=== PATIENT | male | born 1950 | race Caucasian/White ===

== ENCOUNTER 2023-02-09 12:59 | Outpatient (OUT) | payer MEDICARE, OTHER, SELFPAY ==
--- NOTE | 2023-02-09 13:42 | CA_ITS ---
Patient: BRUNO HUYNH Exam Date: 02/09/2023 : 1950 Gender:M Ordering : MRS. PALMER ALEXANDER NP Admission #: [id number] Family : Order #: [id number] CLICK HERE TO VIEW EXAM ECHOCARDIOGRAM REPORT PROCEDURE: CA ECHO DOPPLER COMPLETE INDICATIONS: Dyspnea on exertion, hypertension, diabetes, COPD, smoker COMPARISON: None. DESCRIPTION: COMPLETE ECHOCARDIOGRAM Real-time transthoracic echocardiography with 2D, M-mode, spectral and color flow Doppler performed. QUALITY: Technical quality was good. LEFT VENTRICLE: Normal chamber size. Normal left ventricular wall thickness. Normal systolic function. LV EF: Normal left ventricular ejection fraction, (55%). DIASTOLIC: Diastolic function is indeterminate. ATRIAL SEPTUM: LEFT ATRIUM: Normal chamber size. RIGHT ATRIUM: Normal chamber size. RIGHT VENTRICLE: Normal chamber size. Normal right ventricular systolic function. TRICUSPID VALVE: Normal mobility and thickness. No stenosis with no regurgitation. Unable to assess right-sided pressures due to lack of measurable tricuspid regurgitation. MITRAL VALVE: Normal mobility and thickness. No evidence of mitral valve stenosis. There is no mitral annular calcification. Trivial mitral regurgitation. AORTIC VALVE: Normal trileaflet appearance. Mildly calcified leaflets. Normal leaflet mobility. No evidence of aortic valve stenosis. No aortic regurgitation. AORTIC ROOT: Normal diameter and appearance. PULMONIC VALVE: Normal thickness and mobility. No stenosis. Trivial regurgitation. PERICARDIUM: No evidence of pericardial effusion. IVC: Collapses with inspirations. PLEURA: CONCLUSION: 1. Normal ventricular systolic function. LVEF is 55%. 2. No significant valvular dysfunction. 3. Unable to assess right-sided pressures due to lack of measurable tricuspid regurgitation. Adult Echocardiography Procedure Report Left Ventricle LVEDD (3.7 - 5.6 cm): 5.39 cm LVESD (2.2 - 4.0 cm): 3.57 cm LVIVS thickness (0.6 - 1.2 cm): 1.09 cm LVPW thickness (0.5 - 1.0 cm): 1.03 cm e': 0.08 m/s E - e': 6.73 LVOT Max Gradient: 2.31 mm[Hg], 2.31 mm[Hg] LVOT Area (cm2): 0.76 m/s Peak Velocity (LVOT): 0.76 m/s, 0.76 m/s Mean Velocity (LVOT): 0.58 m/s LVOT Diameter 2.67 cm Left Atrium LA Volume Index (2D A2C): 20.68 ml/m2 Left Atrium Systolic Dimension: 3.25 cm Mitral Valve MV E to A Ratio: 0.57 Mitral Valve A-Wave Peak Velocity: 0.93 m/s Mitral Valve E-Wave Peak Velocity: 0.53 m/s Right Ventricle Aorta AO Root Diam: 3.90 cm Ascending Ao Diam: 3.39 cm Aortic Valve AoV Area (Peak Chad): 4.42 cm2, 4.42 cm2 AoV Area (VTI): 5.54 cm2, 5.25 cm2 Peak Velocity(Antegrade Flow): 0.96 m/s Peak Gradient(Antegrade Flow): 3.70 mm[Hg] Mean Velocity(Antegrade Flow): 0.68 m/s Mean Gradient(Antegrade Flow): 2.05 mm[Hg] Velocity Time Integral: 17.62 cm Tricuspid Valve Pulmonic Valve Peak Velocity: 0.71 m/s Peak Gradient: 2.18 mm[Hg], 1.85 mm[Hg] Right Atrium Right Atrium Systolic Pressure: 26.09 ml, 26.09 ml Dictated by: Lakhwinder Renteria M.D. on 02/11/2023 at 17:57 Approved by: Lakhwinder Renteria M.D. on 02/11/2023 at 18:00
== END 2023-02-09 13:00 | disposition home or self-care (01) ==
LOC: CARD 13:02
PROVIDERS: PCP Family Medicine
DX: R06.09 Other forms of dyspnea (principal)
CPT/HCPCS: 93306

== ENCOUNTER 2024-05-23 11:28 | Emergency (ER) | payer MEDICARE, OTHER, SELFPAY ==
[2024-05-23 11:45] VITALS: BP 119/67; PULSE 84; TEMP 36.8; O2SAT 98; BMI 25.8
--- NOTE | 2024-05-23 11:48 | ECG_ITS ---
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
[2024-05-23 11:54] VITALS: O2SAT 99
[2024-05-23 11:55] VITALS: PULSE 80
--- NOTE | 2024-05-23 12:03 | CT_ITS ---
[address] [address] Patient Name: BRUNO HUYNH MRN: [id number] date: 1950 Sex: M Assigned Patient Location: ED.MAIN Current Patient Location: ED.MAIN Accession/Order Number: [id number] Exam Date: 05/23/2024 12:52 Report Date: 05/23/2024 13:52 At the request of: MYLES BARRETT Procedure: CT angio abd aorta runoff EXAMINATION: CT angio abd aorta runoff HISTORY: ischemic right leg COMPARISON: No relevant comparison available. TECHNIQUE: After obtaining the patient's consent, CT images of the abdomen, pelvis, and lower extremities were obtained without and with non-ionic intravenous contrast material. Multi-planar reformatted/3-D images were created to optimize visualization of vascular anatomy. Dose reduction techniques were achieved by using automated exposure control and/or adjustment of mA and/or kV according to patient size and/or use of iterative reconstruction technique. FINDINGS: AORTA: Ectasia of the infrarenal aorta measuring a maximum of 2.2 cm. Moderate soft and calcific atherosclerotic plaque with no occlusion or dissection Celiac: Ostial atherosclerosis with approximately 80-90% flow stenosis, axial image 42 SMA: Ostial atherosclerosis with 40% narrowing Renals: 2 right renal arteries. Single left renal artery with proximal bifurcation. Ostial atherosclerosis with no flow significant stenosis occlusion or aneurysm VIVIAN: Minimal amount of flow ILIAC: Moderate atherosclerosis. Occlusion of the proximal left internal iliac artery RIGHT LEG: Moderate diffuse atherosclerosis with 80% narrowing of the distal professional femoral artery axial image 192. Good flow identified in the runoff arteries to the distal feet LEFT LEG: Moderate atherosclerosis no flow significant stenosis occlusion or aneurysm. Normal flow identified in the peroneal and posterior tibial arteries with flow in the proximal left tibial artery terminating at the mid lower leg LUNG BASES: Moderate centrilobular emphysema. A infiltrates, atelectasis is favored LIVER: Diffuse hypoattenuation the liver suggesting hepatic steatosis. 4 mm subcapsular hypodensity right hepatic lobe axial image 53, nonspecific BILIARY: Surgical clips from cholecystectomy PANCREAS: No lesion, fluid collection, ductal dilatation, or atrophy. SPLEEN: No enlargement or focal lesion. ADRENALS: No mass or enlargement. KIDNEYS: No mass, obstruction, or calcification. BOWEL/MESENTERY: Extensive colonic diverticulosis without evidence of acute diverticulitis. Nonobstructive bowel gas pattern. Normal appendix RETROPERITONEUM: No mass or adenopathy. ABDOMINAL WALL: No mass or hernia. URINARY BLADDER: Moderate fluid distention PELVIC NODES: No adenopathy. PELVIC ORGANS: Enlarged measuring 5.2 cm transversely BONES: No bony lesion or fracture. OTHER: CT/CT angio abd aorta runoff IMPRESSION: Short segment 80% flow stenosis in the distal right superficial femoral artery Occlusion origin of the left internal iliac artery Absent flow identified in the mid to distal left anterior tibial artery Electronically authenticated by: EDINSON ALVA Date: 05/23/2024 13:52
[2024-05-23 12:11] LABS: Basophils Absolute Auto 0.1 10^3/uL (0.0-0.1); Basophils Percent Auto 0.6 % (0.2-2.0); Eosinophils Absolute Auto 0.3 10^3/uL (0.0-0.7); Eosinophils Percent Auto 2.9 % (0.9-7.0); Hematocrit 49.4 % (42.0-54.0); Immature Granulocytes Abs Auto 0.04 10^3/uL (0.00-0.03); Immature Granulocytes Pct Auto 0.4 % (0.0-0.5); Lymphocytes Absolute Auto 2.4 10^3/uL (1.2-3.8); Lymphocytes Percent Auto 22.3 % (20.5-60.0); Mean Corpuscular HGB Conc 34.4 g/dL (29.9-35.2); Mean Corpuscular Hemoglobin 32.7 pg (25.9-34.0); Mean Platelet Volume 9.4 fL (9.5-13.5); Monocytes Absolute Auto 0.9 10^3/uL (0.3-0.8); Monocytes Percent Auto 8.7 % (1.7-12.0); Neutrophils Percent Auto 65.1 % (43.0-75.0); Platelet Count 356 10^3/uL (150-450); Red Cell Distribution Width 12.3 % (11.0-15.0); White Blood Count 10.7 10^3/uL (4.0-11.0)
[2024-05-23 12:22] LABS: Anion Gap 18.1; BUN Creatinine Ratio 16.3; Calcium 9.4 mg/dL (8.5-10.1); Carbon Dioxide 21.9 mmol/L (21.0-32.0); Chloride 104 mmol/L (98-107); Estimated GFR (African America >60 (>=60 mL/min/1.73m^2); Estimated GFR (Non-African Ame >60 (>=60 mL/min/1.73m^2); Glucose 154 mg/dL (74-106); Sodium 140 mmol/L (136-145)
[2024-05-23 12:27] LABS: INR 1.02; Partial Thromboplastin Time 31.4 sec (22.3-36.2); Prothrombin Time 10.8 sec (9.0-11.6)
[2024-05-23 12:29] LABS: Lactate/Lactic Acid 1.6 mmol/L (0.4-2.0)
[2024-05-23 14:19] VITALS: PULSE 75
[2024-05-23 15:28] VITALS: BP 124/73; PULSE 83; O2SAT 96
--- NOTE | 2024-05-23 15:28 | ED_ITS ---
HPI HPI - General Adult General Chief complaint: Extremity Problem, Nontraumatic Stated complaint: WOUND CHECK Time Seen by Provider: 05/23/24 11:46 Source: patient Mode of arrival: walk-in Limitations: no limitations History of Present Illness HPI narrative: 74-year-old male to the emergency department with chief complaint of discoloration and pain in his first and fifth digits on his right foot. Patient reports that started 24 hours prior to arrival. He has never had this before. He is a smoker and diabetic. No history of injury to the limb. He was seen by his primary care doctor referred him to the emergency department for limb ischemia evaluation. He has no other complaints at this time. Related Data Previous Rx's ?Medication ?Instructions ?Recorded clopidogrel 75 mg tablet (Plavix) 75 mg PO DAILY 30 days #30 tabs 05/23/24 hydrocodone 5 mg-acetaminophen 325 1 tab PO Q6H PRN pain 3 days #12 05/23/24 mg tablet tabs rivaroxaban 2.5 mg tablet (Xarelto) 2.5 mg PO BID 30 days #60 tabs 05/23/24 Allergies Allergy/AdvReac Type Severity Reaction Status Date / Time naproxen (From Naprosyn) AdvReac Severe Nausea Verified 05/23/24 11:48 Opioid HPI Opioid Management Most Recent Opioid Data: Last Pain Scale 6 05/23/24 11:55 05/23/24 Last ED Pain Assessment 05/23/24 11:55 Review of Systems ROS Status of ROS 10 or more systems reviewed and unremark able except as noted in history and below Exam Narrative Exam Narrative: VITALS: I have reviewed the triage vital signs. GENERAL: Well developed, well appearing adult male in no acute distress. NEURO: Alert and oriented. Moves all extremities. Face is symmetric and expressive. EYES: PERRL. No scleral icterus or conjunctival injection. No discharge. HENT: Normocephalic, atraumatic. Hearing is grossly intact. Nares grossly patent and without discharge. Mucous membranes moist. NECK: No JVD. Patient moves neck without restriction. CARDIO: Rhythm regular. Normal rate. No murmur, rub, or gallop. Pulses equal bilaterally in the upper and lower extremity. No lower extremity edema. PULM: Lungs clear to auscultation in all yu. No wheezes, rales, or rhonchi. No conversational dyspnea. No splinting, stridor, or accessory muscle use. GI/: Abdomen is soft and non-tender. Normoactive bowel sounds. Right lower extremity: Dusky appearance of the first and fifth digits. Compartments are soft. Sensation intact over the lower leg. He is able to walk and bear weight. No bony tenderness. Sluggish cap refill in the foot. Diminished but equal PT and DP pulses blt. SKIN: Warm and dry. Normal turgor. No rash or lesions appreciated. PSYCH: Mood, affect, and interaction is appropriate to the setting. Constitutional Vital Signs, click to edit/add: Last Vital Signs Temp 98.3 F 05/23/24 11:45 Pulse 75 05/23/24 14:19 Resp 20 05/23/24 11:45 BP 119/67 05/23/24 11:45 Pulse Ox 99 05/23/24 11:54 O2 Del Method Room Air 05/23/24 11:54 Course Vital Signs Vital signs: Vital Signs Temperature 98.3 F 05/23/24 11:45 Pulse Rate 84 05/23/24 11:45 Respiratory Rate 20 05/23/24 11:45 Blood Pressure 119/67 05/23/24 11:45 Pulse Oximetry 98 05/23/24 11:45 Oxygen Delivery Method Room Air 05/23/24 11:45 Temperature 98.3 F 05/23/24 11:45 Pulse Rate 75 05/23/24 14:19 Respiratory Rate 20 05/23/24 11:45 Blood Pressure 119/67 05/23/24 11:45 Pulse Oximetry 99 05/23/24 11:54 Oxygen Delivery Method Room Air 05/23/24 11:54 Medical Decision Making [facility] Narrative Medical decision making narrative: 74-year-old male to the emergency department with chief complaint of discoloration of his toes on his right foot. Vital stable, the patient is afebrile. He does have intact distal pulses. CTA with runoff is ordered. Basic labs. Patient agrees with this plan. He declines any pain medication CBC and chemistry without major abnormalities. CTA with runoff with multiple findings, no critical ischemia. In the right limb he has an 80% occlusion of the right superficial femoral. Dr. Cortez the on-call vascular surgeon was consulted. He recommended the patient be placed on a statin if he has not already. He recommended both an antiplatelet agent and anticoagulant. Plavix and Xarelto are chosen for the patient. He has no contraindications to blood thinners. He will see the patient in his [place] office on Thursday. Patient's PCP Dr. Sena was updated. Recommendations were discussed with the patient. It is of anticoagulation were discussed. Patient is agreement with plan. Plavix and Xarelto prescription sent. Short course of [place] for acute pain. Return precautions were discussed. All questions were answered. The patient was discharged home. Medical Records Medical records reviewed: Yes I reviewed the patient's medical records Lab Data Lab results reviewed: Yes I reviewed the patient's lab results Labs: Lab Results 05/23/24 Range/Units 11:52 WBC 10.7 (4.0-11.0) 10^3/uL RBC 5.20 (4.70-6.10) 10^6/uL Hgb 17.0 (14.0-18.0) g/dL Hct 49.4 (42.0-54.0) % MCV 95.0 H (80.0-94.0) fL MCH 32.7 (25.9-34.0) pg MCHC 34.4 (29.9-35.2) g/dL RDW 12.3 (11.0-15.0) % Plt Count 356 (150-450) 10^3/uL MPV 9.4 L (9.5-13.5) fL Neut % (Auto) 65.1 (43.0-75.0) % Lymph % (Auto) 22.3 (20.5-60.0) % [place] % (Auto) 8.7 (1.7-12.0) % Eos % (Auto) 2.9 (0.9-7.0) % Baso % (Auto) 0.6 (0.2-2.0) % Neut # (Auto) 7.0 H (1.4-6.5) 10^3/uL Lymph # (Auto) 2.4 (1.2-3.8) 10^3/uL [place] # (Auto) 0.9 H (0.3-0.8) 10^3/uL Eos # (Auto) 0.3 (0.0-0.7) 10^3/uL Baso # (Auto) 0.1 (0.0-0.1) 10^3/uL Abs Immat Gran (auto) 0.04 H (0.00-0.03) 10^3/uL Imm/Tot Granulo (auto) 0.4 (0.0-0.5) % PT 10.8 (9.0-11.6) sec INR 1.02 APTT 31.4 (22.3-36.2) sec Sodium 140 (136-145) mmol/L Potassium 4.0 (3.5-5.1) mmol/L Chloride 104 (98-107) mmol/L Carbon Dioxide 21.9 (21.0-32.0) mmol/L Anion Gap 18.1 BUN 14.0 (7.0-18.0) mg/dL Creatinine 0.86 (0.70-1.30) mg/dL Est GFR ( Amer) >60 (>=60 mL/min/1.73m^2) Est GFR (Non-Af Amer) >60 (>=60 mL/min/1.73m^2) BUN/Creatinine Ratio 16.3 Glucose 154 H (74-106) mg/dL Lactate 1.6 (0.4-2.0) mmol/L Calcium 9.4 (8.5-10.1) mg/dL Imaging Data CTA Runoff: Attestation: I have reviewed the pertinent imaging results. Radiologist's impression: ITS Impressions Aorta w/Runoff CTA 05/23/24 12:03 IMPRESSION: Short segment 80% flow stenosis in the distal right superficial femoral artery Occlusion origin of the left internal iliac artery Absent flow identified in the mid to distal left anterior tibial artery Electronically authenticated by: EDINSON ALVA Date: 05/23/2024 13:52 Discharge Plan Discharge Chief Complaint: Extremity Problem, Nontraumatic Clinical Impression: Peripheral arterial disease Patient Disposition: Home, Self-Care Time of Disposition Decision: 15:07 Condition: Good Mode of Transportation: Private Vehicle Prescriptions / Home Meds: New Xarelto 2.5 mg tablet 2.5 mg PO BID 30 Days Qty: 60 0RF clopidogrel [Plavix] 75 mg tablet 75 mg PO DAILY 30 Days Qty: 30 0RF hydrocodone-acetaminophen 5-325 mg tablet 1 tab PO Q6H PRN (Reason: pain) 3 Days Qty: 12 0RF Print Language: Citizen Of [place] Instructions: Peripheral Artery Disease (ED), Blood Thinners (ED) Additional Instructions: Call the office of your primary care doctor to arrange for follow-up within the above-stated timeframe. Your ED visit was focused on your acute issue and does not replace primary care. You should review your labs, imaging, and diagnoses from this ED visit with your primary care physician. There may be non-emergent/ incidental findings that need further evaluation. You should review your vital signs including blood pressure with your PCP. If you were prescribed medications you should discuss possible side-effects and drug interactions with your pharmacist. Call 911 or go to the nearest Emergency Department if you develop any new or worsening symptoms. Return to the ER with worsening pain, further discoloration or other new or concerning symptoms. Referrals: Uriel Sena MD [Primary Care Provider] - 1 week Christine Cortez MD [Physician] - 1 week (Call office for appointment on Thursday p er Dr. Cortez's request. [phone]. Begin Plavix and Xarelto. )
== END 2024-05-23 15:39 | disposition home or self-care (01) ==
PROVIDERS: Emergency Provider Student in an Organized Health Care Education/Training Program; PCP Family Medicine
DX: E11.51 Type 2 diabetes mellitus with diabetic peripheral angiopathy without gangrene (principal); F17.200 Nicotine dependence, unspecified, uncomplicated; Z79.82 Long term (current) use of aspirin; Z79.01 Long term (current) use of anticoagulants
CPT/HCPCS: 36415; 75635; 80048; 83605; 85025; 85610; 85730; 93005; 99285; Q9967

== ENCOUNTER 2025-07-10 11:34 | Emergency (ER) | payer MEDICARE, OTHER, SELFPAY ==
[2025-07-10 11:39] VITALS: BP 137/82; PULSE 95; TEMP 37.1; O2SAT 98; BMI 25.8
[2025-07-10 12:59] VITALS: BP 122/70; PULSE 84; O2SAT 98
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
--- OUTSIDE RECORDS SUMMARY | 2025-07-10 13:02 | XMS_ITS | Clinical Summary ---
Author Organization [facility] Address [address], [address] [place] [address] Care Team Providers Care Hardware Designer Name Role Phone Demi Sifuentes MD Primary Care Provider [phone] Allergies Active AllergyReactionsCriticalityNoted NlaiKtyclxkkZntegutzi44/27/2012 Qtuzeyjjcmyrhfkkgga58/27/2012 Muscle cramps Whzrnrki83/09/2012 Other reaction(s): GI Disturbance Ggozeiso66/29/2012 depression Medications MedicationSigDispense QuantityRefillsLast FilledStart DateEnd DateStatus aspirin 81 MG tablet Take 1 tablet by mouth dailyActive budesonide-formoterol (SYMBICORT) 160-4.5 MCG/ACT AERO Inhale 2 puffs into the lungs 2 times daily. 1 Inhaler ctive albuterol (PROVENTIL HFA) 108 (90 BASE) MCG/ACT inhaler Inhale 2 puffs into the lungs every 4 hours as needed for Wheezing. 1 Inhaler ctive carvedilol (COREG) 12.5 MG tablet Take 1 tablet by mouth 2 times daily (with meals)Active empagliflozin (JARDIANCE) 25 MG tablet Take 1 tablet by mouth dailyActive loratadine-pseudoephedrine (CLARITIN-D 12HR) 5-120 MG per extended release tablet Take 1 tablet by mouth 2 times dailyActive omeprazole (PRILOSEC) 20 MG delayed release capsule Take 1 capsule by mouth dailyActive rOPINIRole (REQUIP) 0.25 MG tablet Take 1 tablet by mouth dailyActive atorvastatin (LIPITOR) 10 MG tablet TK 1 T PO [id number] amLODIPine (NORVASC) 10 MG tablet Take 1 tablet by mouth dailyActive ipratropium-albuterol (DUONEB) 0.5-2.5 (3) MG/3ML SOLN nebulizer solution Inhale 3 mLs into the lungs 4 times daily as rqsqmm0107/16/2020Active fluticasone-salmeterol (ADVAIR) 250-50 MCG/DOSE AEPB Inhale 1 puff into the lungs 2 times daily08/13/2020ctive losartan (COZAAR) 100 MG tablet TAKE 1 TABLET BY MOUTH DAILY03/28/2022ctive metFORMIN (GLUCOPHAGE-XR) 500 MG extended release tablet take 1 tablet by mouth twice a day02/01/2022ctive LORazepam (ATIVAN) 1 MG tablet take 1 tablet by mouth every 6 hours if kuoiln3204/23/2022ctive sildenafil (REVATIO) 20 MG tablet take 1 tablet by mouth once daily04/02/2022ctive tamsulosin (FLOMAX) 0.4 MG capsule Indications:BPH with obstruction/lower urinary tract symptomsTake 1 capsule by mouth daily 30 capsule ctive finasteride (PROSCAR) 5 MG tablet Indications:BPH with obstruction/lower urinary tract symptomsTake 1 tablet by mouth daily 90 tablet ctive clopidogrel (PLAVIX) 75 MG tablet Take 1 tablet by mouth dailyActive XARELTO 2.5 MG TABS tablet Take 1 tablet by mouth 2 times dailyActive finasteride (PROSCAR) 5 MG tablet Indications:BPH with obstruction/lower urinary tract symptomsTake 1 tablet by mouth daily 90 tablet ctive alfuzosin (UROXATRAL) 10 MG extended release tablet Indications:BPH with obstruction/lower urinary tract symptomsTAKE 1 TABLET BY MOUTH DAILY 90 tablet 5ActiveHospital, Clinic, or Other Facility Administered Medication Ordered DoseRouteFrequencyStart DateEnd DateStatus dexamethasone (DECADRON) injection 8 mg Indications:Bronchitis8 mbOUMNEL19/15/2013ctive Active Problems ProblemNoted DateDiagnosed YgmtHzpsnleqti56/27/2012 Overview (07/15/2012): Cavernous Venous Hemangioma GERD (gastroesophageal reflux disease)07/15/20126761Fzumsyw66/27/2012HTN (hypertension)07/15/2012Hyperlipidemia Encounters DateTypeDepartmentCare GfprHdsdksqrsjk51/21/2025Refill [facility] [address] [place] [address] Caden Jj MD Medication Tbqmsr9004/21/2025bstract [facility] [address] [place] [address] Osmel, CHELSEY Olmedo from Last 3 Months Family History Medical HistoryRelationNameCommentsCancerFatherStrokeMotherRelationNameStatus CommentsFatherDeceasedMotherAliveSister 1AliveSister 2Alive Social History Tobacco UseTypesPacks/DayYears UsedDateSmoking Tobacco: Every DayCigarettes Smokeless Tobacco: Never Tobacco Cessation:Ready to Q uit: Not Asked; Counseling Given: Not Answered Comments:interested with help in quitting Alcohol UseStandard Drinks/WeekCommentsNo0 (1 standard drink = 0.6 oz pure alcohol)Sex and Gender InformationValueDate RecordedSex Assigned at BirthNot on fileLegal XcoLlnc6808/29/2012 5:03 PM ESTGender IdentityNot on fileSexual OrientationNot on file Last Filed Vital Signs Vital SignReadingTime TakenCommentsBlood Fwccwqgf930/7007/05/2024 11:03 AM EST Zjvgg131507/05/2024 11:03 AM SBZQljszzhqxzf89.5 ??C (97.7 ??F)07/05/2024 11:03 AM ESTRespiratory Uctt572504/12/2013 1:42 PM EDTOxygen Qvdiimmsck07%07/05/2024 11:03 AM ESTInhaled Oxygen Concentration--Kkjkla84.6 kg (180 lb)07/05/2024 11:03 AM PSVRvkcdu025.8 cm (5' 10 )07/05/2024 11:03 AM ESTBody Mass Index25.8307/05/2024 11:03 AM EST Plan of Treatment Health MaintenanceDue DateLast DoneCommentsDepression Wxivrc9802/07/1964Hepatitis C ymhxlt7402/06/1970DTaP/Tdap/Td vaccine (1 - Tdap)02/06/19711473Lluvwgkiejz68/21/1997 FIT/FOBT: Average risk02/06/1997Sigmoidoscopy/CT vfhofvjejemb98/21/1997Shingles vaccine (1 of 2)02/06/20021093Uvmdcf17/20/AA eiqlzf5202/06/2017Annual Wellness Visit (Medicare)06/15/2023Flu vaccine (#1)/09/2023, 05/13/2023, 05/12/2022, Additional history existsCOVID-19 Vaccine ( season)/, 05/15/2022, 11/27/2021, Additional history exists Colorectal Cancer Iybftj6402/12/2027Fecal-DNA (Cologuard): Average risk02/12/2027 02/13/2024, 1Pneumococcal 50+ years EbsuxwpCdanjeuvi98/02/2018, 05/22/2017, 05/13/2017Prostate Specific Antigen (PSA) Screening or Monitoring Gsodjovscaiz77/06/2021, 09/08/2011Respiratory Syncytial Virus (RSV) or age 60 yrs+Zaualhpsc60/06/2023Hepatitis A vaccineAged OutNo longer eligible based on patient's age to complete this topicHepatitis B vaccineAged OutNo longer eligible based on patient's age to complete this topicHib vaccineAged Out No longer eligible based on patient's age to complete this topicMeningococcal (ACWY) vaccineAged OutNo longer eligible based on patient's age to complete this topicMeningococcal B vaccineAged OutNo longer eligible based on patient's age to complete this topicPolio vaccineAged OutNo longer eligible based on patient's age to complete this topic Procedures Procedure NamePriorityDate/TimeAssociated DiagnosisCommentsPSA, DIAGNOSTIC Tkjzftf4010/23/2020 Prostate cancer screening LIPID SVHYKTmufzbc16/20/2012 7:10 AM EST from Last 3 Months or Most Recently Relevant to Health Maintenance Results * PSA, Diagnostic (10/23/2020)Specimen (Source)Anatomical Location / Laterality Collection Method / VolumeCollection TimeReceived TimeBLOOD SPECIMEN / Unknown Narrative Authorizing ProviderResult TypeResult StatusDino Santacroce MDCHEMISTRY ORDERABLESFinal Result * (ABNORMAL) Lipid panel (09/08/2011 7:10 AM EST)ComponentValueRef RangeTest MethodAnalysis TimePerformed AtPathologist VrxlfgdnpUtzuawlnevn193<200 mg/dL MHPN LABComment: ? Cholesterol Normals: <200 Desirable ?? 200-239 ??Borderline high >hu=797 High ? HDL42>40 mg/dLMHPN LABComment: ? HDL Normals: <40 Higher risk >or=60 Desirable ? LDL Suazunlctlc515(H)<100 mg/dLMHPN LABComment: ? LDL Normals: <100 Optimal ?? 100-129 ?? Near to above optimal ?? 130-159 ?? Borderline high ?? 160-189 ?? High >sf=336 Very high ? Direct (measured) LDL and calculated LDL are not interchangeable tests. Chol/HDL Ratio4.1<5.0MH[facility] LABComment:Hwdybifpqeemz52<150 mg/dLMHPN LABComment: ? Triglyceride Normals: <150 Normal ?? 150-199 ?? Borderline high >199 High ? Performed at [facility] [address] VLDLNOT REPORTED1 - 36 mg/dLMHPN LABSpecimen (Source)Anatomical Location / LateralityCollection Method / VolumeCollection TimeReceived Time09/08/2011 7:10 AM EST09/08/2011 12:56 PM EST Narrative Authorizing ProviderResult TypeResult StatusMalia Young MDCHEMISTRY ORDERABLESFinal ResultPerforming OrganizationAddressCity/State/ZIP CodePhone Number PN LAB from Last 3 Months or Most Recently Relevant [place] [address] MemberSubscriberPlan / Payer (Effective 2019-Present)Name:Chet Vazquez Relation to Subscriber:SelfName:Chet Vazquez Payer ID:Not on file Group ID:Not on file Type:Not on file Address: [address] [place] [id number] Care Teams Team MemberRelationshipSpecialtyStart DateEnd Date Demi Sifuentes MD PCP - GeneralFamily Medicine03/15/19
--- OUTSIDE RECORDS SUMMARY | 2025-07-10 13:03 | XMS_ITS | Clinical Summary ---
Author Organization [facility] Address [address] [place] [address] Care Team Providers Care Farm Loan Representative Name Role Phone Uriel Sena MD Primary Care Provider [phone] Allergies Active AllergyReactionsCriticalityNoted DateCommentsHydrochlorothiazide 06/15/2012 Muscle cramps Muscle cramps Muscle cramps DzfqktazXcqgdnt73/19/1286GchsrdLyavqvn99/23/2023 Other reaction(s): Unknown LbcfrbexVouragp06/19/2023 Medications MedicationSigDispense QuantityRefillsLast FilledStart DateEnd DateStatus albuterol HFA (ProAir HFA) 90 mcg/act inhaler every 4 (four) hours.Active metFORMIN XR (Glucophage-XR) 500 MG 24 hr tablet Indications:Type 2 diabetes mellitus without complication, unspecified whether retirement insulin use (HCC)TAKE 1 TABLET BY MOUTH TWICE DAILY 180 tablet ctive ipratropium-albuterol (Duo-Neb) 0.5-2.5 mg/3 mL nebulizer solution Take 3 mL by nebulization every 6 (six) hoursActive carvedilol (Coreg) 12.5 MG tablet Indications:Essential hypertension, benignTAKE 1 TABLET(12.5 MG) BY MOUTH EVERY 12 HOURS 180 tablet ctive rivaroxaban (Xarelto) 2.5 MG tablet Take by mouthActive clopidogrel (Plavix) 75 MG tablet Take 75 mg by mouth Daily05/23/2024ctive empagliflozin (Jardiance) 25 MG Indications:Type 2 diabetes mellitus with hyperglycemia, without long-term current use of insulin (HCC)Take 1 tablet (25 mg) by mouth Daily 30 tablet 4Active rOPINIRole (Requip) 0.25 MG tablet Indications:RLS (restless legs syndrome)TAKE 1 TABLET(0.25 MG) BY MOUTH AT BEDTIME 90 tablet 3124Active atorvastatin (Lipitor) 40 MG tablet Take 40 mg by mouth Daily5Active LORazepam (Ativan) 1 MG tablet Indications:ELBA (generalized anxiety disorder)Take 1 tablet (1 mg) by mouth every 6 (six) hours if needed for anxiety 120 tablet 5Active esomeprazole (NexIUM) [address] capsule Indications:Gastroesophageal reflux disease without esophagitisTake 1 capsule (40 mg) by mouth in the morning. Take before meals. Do not open capsule.. 90 capsule 5Active losartan (Cozaar) 100 MG tablet Indications:Benign essential HTNTake 1 tablet (100 mg) by mouth Daily 90 tablet 5Active amLODIPine (Norvasc) 10 MG tablet Indications:Benign essential HTNTAKE 1 TABLET(10 MG) BY MOUTH 1 TIME EACH DAY AT THE SAME TIME 90 tablet 5Active LORazepam (Ativan) 1 MG tablet Indications:ELBA (generalized anxiety disorder)Take 1 tablet (1 mg) by mouth every 6 (six) hours if needed for anxiety 120 tablet 1085Active Active Problems ProblemNoted DateDiagnosed DateGAD (generalized anxiety disorder)2025 Assessment & Plan (2025 1:33 PM EDT): Symptoms tolerable with ativan and use PRN. Restless legs syndrome (RLS)2025 Assessment & Plan (2025 1:34 PM EDT): Symptoms controlled with requip and continue. Medicare annual wellness visit, nrujkszcza89/20/2025Encounter for long-term (current) use of mzdoihulopt73/20/2025Peripheral arterial pedqjni9405/31/2024 Assessment & Plan (2025 1:33 PM EDT): Continue plavix and follow with vascular. Assessment & Plan (05/31/2024 4:58 PM EST): Continue plavix and follow with vascular. Ischemic pain of right foot05/23/2024 Assessment & Plan (05/31/2024 4:58 PM EST): Continued pain and use norco PRN. Follow up with vascular for testing and intervention. Assessment & Plan (05/23/2024 11:23 AM EST): Pain and discoloration concerning of limb ischemia. Patient directed to ER for evaluation. Gastroesophageal reflux disease without csgewkworrc19/02/2024 Assessment & Plan (2025 1:33 PM EDT): Symptoms controlled with nexium and continue. Chronic obstructive pulmonary nrgzucj2112/05/2022 Assessment & Plan (2025 1:33 PM EDT): Symptoms stable and use albuterol PRN. Need to stop smoking. Assessment & Plan (08/08/2024 1:27 PM EST): Symptoms stable and use albuterol PRN. Need to stop smoking. Benign essential HTN12/05/2022 Assessment & Plan (2025 1:33 PM EDT): BP controlled and monitor PRN. Assessment & Plan (08/08/2024 1:27 PM EST): BP controlled and monitor PRN. Full thickness rotator cuff tear12/05/20229403Jrzicoffvgzy66/19/2023Lumbago 12/05/2022Thoracic back pain12/05/2022rimary localized osteoarthrosis of shoulder hsvkcn9912/05/2022Trigger thumb of left hand12/05/2022Type 2 diabetes mellitus with hyperglycemia, without long-term current use of ogmlfcq4312/05/2022 Assessment & Plan (2025 1:34 PM EDT): Reports BS stable and due for A1C. Assessment & Plan (08/08/2024 1:29 PM EST): Reports BS stable and due for A1C. Resolved Problems ProblemNoted DateDiagnosed DateResolved DateLaceration of left upper extremity 5002/07/2025 Assessment & Plan (08/03/2024 11:05 AM EST): Recent laceration but appears to be healing. No erythema or signs of infection. Continue to cover. Use norco PRN or pain. Immunizations ImmunizationAdministration DatesNext DueInfluenza, injectable, quadrivalent, preservative free06/10/2021Influenza, seasonal, injectable, preservative free 04/26/2014Pneumococcal Polysaccharide QJRQ963208/21/2017 Family History RelationNameStatusCommentsFatherDeceasedMotherDeceased Social History Tobacco UseTypesPacks/DayYears UsedDateSmoking Tobacco: Every DayCigarettes Tobacco Cessation:Ready to Q uit: Not Asked; Counseling Given: Not Answered Alcohol UseStandard Drinks/WeekCommentsNot Currently0 (1 standard drink = 0.6 oz pure alcohol)PHQ-2AnswerDate RecordedPatient Health Questionnaire-2 Score0 08/08/2024Sex and Gender InformationValueDate RecordedSex Assigned at BirthNot on fileLegal JepQifm8310/01/2022 7:26 PM EDTGender IdentityNot on fileSexual OrientationNot on file Last Filed Vital Signs Vital SignReadingTime TakenCommentsBlood Iezagval396/6607 1:12 PM EDT Faont2190 1:12 PM LAKLxvvrkevlee77.3 ??C (97.3 ??F)2025 1:12 PM EDTRespiratory Grkp0914 1:12 PM EDTOxygen Yjyyqizzuw47%2025 1:12 PM EDTInhaled Oxygen Concentration--Nfpthb23 kg (183 lb)2025 1:12 PM EDT Pxcvym112.8 cm (5' 10 )2025 1:12 PM EDTBody Mass Index26.2607/ 1:12 PM EDT Plan of Treatment Health MaintenanceDue DateLast DoneCommentsCT Xaczlnfwexcx1952Colonoscopy 1952FIT1952FOBT1952 9213Vuiurxyosoutk1952OVID-19 Vaccine ( season)502/01/2025, 06/06/2023, 05/15/2022, Additional history existsInfluenza Vaccine (#1)/09/2023, 05/13/2023, 05/12/2022, Additional history existsColorectal Cancer Wekzipvgm45/27/2027 FIT-DNA, 11/12/2020neumococcal Vaccine: 65+ YearsCompleted 06/20/2018, 05/22/2017, 05/13/2017 Procedures Procedure NamePriorityDate/TimeAssociated DiagnosisCommentsLAB COLOGUARD?? COLON CANCER BIIYOKOdbukey81/27/2024 11:00 AM EDT Colon cancer screening from Last 3 Months or Most Recently Relevant to Health Maintenance Results * Cologuard?? colon cancer screening (02/13/2024 11:00 AM EDT)ComponentValueRef RangeTest MethodAnalysis TimePerformed AtPathologist SignatureNONINV COLON CA DNA+OCC BLD SCRN STL-BYTHmywblbqItdfpdne00/31/2024 6:46 PM [email or web address] (CLIA #:[id number])Comment: NEGATIVE TEST RESULT. A negative Cologuard result indicates a low likelihood that a colorectal cancer (CRC) or advanced adenoma (adenomatous polyps with more advanced pre-malignant features) ??is present. The chance that a person with a negative Cologuard test has a colorectal cancer is less than 1in 1500 (negative predictive value >99.9%) or has an advanced adenoma is less than 5.3% (negative predictive value 94.7%). These data are based on a prospective cross-sectional study of 10,000individuals at average risk for colorectal cancer who were screened with both Cologuard and colonoscopy. (Irvin Adam al, N Engl J Med 2014;370(14):2594-9636) The normal value (reference range) for this assay is negative. COLOGUARD RE-SCREENING RECOMMENDATION: Periodic colorectal cancer screening is an important part ofpreventive healthcare for asymptomatic individuals at average risk for colorectal cancer. ??Following a negative Cologuard result, the [place] [employer] Society and U.S. Multi-Society Task Force screening guidelines recommend a Cologuard re-screening interval of 3 years. References: [place] [employer] Guideline for Colorectal Cancer Screening: https://www.cancer.or g/cancer/purhr-nkkfft-ygegli/mzqybfbos-txgfnpbjs-ibpaabv/acs-recommendations.htm l.; Kenan CLEMENT, rBenda RAE, Pam SyK, Colorectal Cancer Screening: Recommendations for Physicians and Patients from the U.S. Multi-Society Task Force on Colorectal Cancer Screening , Am J Gastroenterology 2017; 112:3644-6527. TEST DESCRIPTION: Composite algorithmic analysis of stool DNA-biomarkers with hemoglobin immunoassay. ?? Quantitative values of individual biomarkers are not reportable and are not associated with individual biomarker result reference ranges. Cologuard is intended for colorectal cancer screening ofadults of either sex, 45 years or older, who are at average-risk for colorectal cancer (CRC). Cologuard has been approved for use by the U.S. FDA. The performance of Cologuard was established in a cross sectional study of average-risk adults aged 50-84. Cologuard performance in patients ages 45 to 49 years was estimated by sub-group analysis of near-age groups. Colonoscopies performed for a positive result may find as the most clinically significant lesion: colorectal cancer [4.0%], advanced adenoma (including sessile serrated polyps greater than or equal to 1cm diameter) [20%] or non- advanced adenoma [31%]; or no colorectal neoplasia [45%]. These estimates are derived from a prospective cross-sectional screening study of 10,000 individuals at average risk for colorectal cancer who were screened with both Cologuard and colonoscopy. (Irvin Adam al, N Engl J Med 2014;370(14):3567-0123.) Cologuard may produce a false negative or false positive result (no colorectal cancer or precancerous polyp present at colonoscopy follow up). A negative Cologuard test result does not guarantee the absence of CRC or advanced adenoma (pre-cancer). The current Cologuard screening interval is every 3 years. ([place] [employer] and U.S. Multi-Society Task Force). Cologuard performance data in a 10,000 patient pivotal study using colonoscopy as the reference method can be accessed at the following location: www.viaCycle.goDog Fetch/results. Additional description of the Cologuard test process, warnings and precautions can be found at www.EntropySoftogSolovisrd.com. Specimen (Source)Anatomical Location / LateralityCollection Method / Volume Collection TimeReceived TimeStool specimen (specimen)02/13/2024 11:00 AM EDT 02/15/2024 11:04 AM EDT Narrative Authorizing ProviderResult TypeResult StatusMarc Nathen [facility] ORDERABLESFinal ResultPerforming OrganizationAddressCity/State/ZIP CodePhone Number .[employer] (CLIA #:[id number]) [address] [place] [address], [place] [phone] [employer] (CLIA #:[id number]) [address] [place] [address] from Last 3 Months or Most Recently Relevant to Health Maintenance Insurance Care Teams Team MemberRelationshipSpecialtyStart DateEnd Date Uriel Sena MD [facility] - [facility] Ljnqrdya26/4/24
--- OUTSIDE RECORDS SUMMARY | 2025-07-10 13:03 | XMS_ITS | Clinical Summary ---
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 Name Role Phone Uriel Sena MD Primary Care Provider [phone] Allergies Active AllergyReactionsCriticalityNoted DateCommentsHydrochlorothiazide 06/15/2012 Muscle cramps Muscle cramps OhwthixsIhuvz13/09/2012 Other reaction(s): GI Disturbance Medications MedicationSigDispense QuantityRefillsLast FilledStart DateEnd DateStatus amLODIPine (Norvasc) 10 mg tablet Take 10 mg by mouth in the morning.Active atorvastatin (Lipitor) 10 mg tablet Take 10 mg by mouth in the morning.3Active carvedilol (Coreg) 12.5 mg tablet Take 12.5 mg by mouth in the morning and at bedtime.Active empagliflozin (Jardiance) 25 mg Take 25 mg by mouth in the morning.Active ipratropium-albuteroL (Duo-Neb) 0.5-2.5 mg/3 mL nebulizer solution Inhale 3 mL if needed in the morning, at noon, in the evening, and at bedtime. 07/16/2020Active loratadine-pseudoephedrine (Claritin-D 12-hour) 5-120 mg 12 hr tablet Take 1 tablet by mouth twice a day.Active LORazepam (Ativan) 0.5 mg tablet Take 0.5 mg by mouth every 6 (six) hours if needed.Active melatonin 10 mg tablet Take 10 mg by mouth if needed each day.Active metFORMIN (Glucophage) 1,000 mg tablet Take 1,000 mg by mouth in the morning, at noon, and at bedtime.Active omeprazole (PriLOSEC) [address] capsule Take 20 mg by mouth in the morning.08/04/2017Active rOPINIRole (Requip) 0.25 mg tablet Take 0.25 mg by mouth at bedtime.10/17/2022ctive celecoxib (CeleBREX) 200 mg capsule Take 1 capsule by mouth every 12 (twelve) hours.Active nitroglycerin (Nitrostat) 0.4 mg SL tablet Indications:Chest pain, unspecified typePlace 1 tablet (0.4 mg) under the tongue every 5 (five) minutes if needed for chest pain. May repeat dose every 5 minutes for up to 3 doses total. 100 tablet ctive losartan-hydrochlorothiazide (Hyzaar) 100-12.5 mg tablet Indications:Hypertension, unspecified typeTake 1 tablet by mouth in the morning. 30 tablet 12/29/2022ctive albuterol 90 mcg/actuation inhaler Indications:Chronic obstructive pulmonary disease, unspecified COPD type (CMS/HCC)Inhale 1 puff every 6 (six) hours if needed for shortness of breath. 18 g ctive Wixela Inhub 250-50 mcg/dose diskus inhaler Indications:Chronic obstructive pulmonary disease, unspecified COPD type (CMS/HCC)Inhale 1 puff in the morning and at bedtime.12/29/2022ctive aspirin 81 mg EC tablet Take 81 mg by mouth in the morning.Active qxwodchoqh-bbcitetp-stdqfjcqbz (Breztri Aerosphere) 160-9-4.8 mcg/actuation HFA aerosol inhaler Inhale 2 puffs twice a day.01/18/2024ctive alfuzosin (Uroxatral) 10 mg 24 hr tablet Take 10 mg by mouth in the morning.Active finasteride (Proscar) 5 mg tablet Take 5 mg by mouth in the morning.Active Active Problems ProblemNoted DateDiagnosed DateAbnormal stress test12/10/2022 Overview (12/10/2022): Added automatically from request for surgery [id number] Benign essential HTN12/05/2022Full thickness rotator cuff tear12/05/2022Thoracic back pain12/05/2022rimary localized osteoarthrosis of shoulder xowvlv9912/05/2022 Trigger thumb of left hand12/05/2022Type 2 diabetes mellitus without sgyxxfrgdwuk84/19/2580Giyratvvognegj27/17/2023Chronic cough09/11/2022Restless legs /02/2018Pulmonary cbuqoi1901/14/2018Family history of lung cancer 10/08/2017Chronic obstructive pulmonary cwnogwm8408/05/2017OSA (obstructive sleep apnea)08/05/2017Personal history of tobacco use, presenting hazards to health 08/05/2017Tear of triangular pbsyioabvjmbqw14/21/5760Mcynsjz09/27/2012GERD (gastroesophageal reflux disease)07/15/20128653Vfrigwqawl61/27/2012 Overview (12/03/2022): Cavernous Venous Hemangioma HTN (hypertension)07/15/2012 Immunizations ImmunizationAdministration DatesNext DueInfluenza, High Dose Seasonal, Preservative Free06/08/2019,05/22/2017Influenza, High-dose Seasonal, Quadrivalent, Preservative Free05/23/2020Influenza, Jgvownvinmr57/25/2017 Influenza, injectable, quadrivalent, preservative free05/12/2022,06/10/2021 Influenza, seasonal, mawdqskfah56/01/2017Influenza, seasonal, injectable, preservative free, 6 moonths & older04/26/2014Influenza, trivalent, adjuvanted 06/20/2018Pneumococcal Conjugate PCV 13107/22/2016,05/13/2017Pneumococcal Polysaccharide YEC361908/21/2017Unspecified Sars-Cov-2 Qitvhteghio86/11/2022, 06/06/2021 Family History Medical HistoryRelationNameCommentsNo Known ProblemsFatherNo Known Problems MotherRelationNameStatusCommentsFatherMother Social History Tobacco UseTypesPacks/DayYears UsedDateSmoking Tobacco: Every DayCigarettes Smokeless Tobacco: Never Tobacco Cessation:Ready to Q uit: Not Asked; Counseling Given: Not Answered Alcohol UseStandard Drinks/WeekCommentsNever0 (1 standard drink = 0.6 oz pure alcohol)UT Safety & EnvironmentAnswerDate RecordedFear of Current or Ex-Partner Not on file09/10/2023Emotionally AbusedNot on file09/10/2023hysically AbusedNot on file09/10/2023Sexually AbusedNot on 09/10/2023hysically or Sexually AbusedNot on 09/10/2023Sex and Gender InformationValueDate RecordedSex Assigned at BirthNot on fileLegal DqwBbil7601/15/2022 9:43 PM EDTGender Identity Not on fileSexual OrientationNot on file Last Filed Vital Signs Vital SignReadingTime TakenCommentsBlood Fidbndww744/6010 2:33 PM EDT Bdxnq254105/16/2024 2:33 PM EDTTemperature--Respiratory Oawl6274 12:30 PM EDTOxygen Pdcayszszh43%05/16/2024 2:33 PM EDTInhaled Oxygen Concentration-- Axjmni22.1 kg (181 lb)05/16/2024 2:33 PM LDMHzdjms749.8 cm (5' 10 )05/16/2024 2:33 PM EDTBody Mass Index25.9705/16/2024 2:33 PM EDT Plan of Treatment Health MaintenanceDue DateLast DoneCommentsCT Ipxrdfypwzou1952Colonoscopy 1950FOBT1950Medicare Annual Wellness (AWV)1952igmoidoscopy 2Diabetes: Retinopathy Ikjaowwpo19/21/1962Depression Screening 1964Adult Zmxvpvh2102/06/1974Zoster Vaccines (1 of 2)02/06/2002Fall Risk Embeauojk96/21/2017Diabetes: Hemoglobin A1C/2Diabetes: Urine Protein Fnpgqklvo79/08/20228830FAB77/27//OVID-19 Vaccine ( season)/, 05/15/2022, 11/27/2021, Additional history existsInfluenza Vaccine (#1)/, 05/12/2022, 06/10/2021, Additional history existsColorectal Cancer Gckqghbrp05/27/2027 FIT-DNA707/4Pneumococcal Vaccine: 50+ ReixpErwherbhb56/02/2018, 05/22/2017, 05/13/2017HIB VaccinesAged OutNo longer eligible based on patient's age to complete this topicHPV VaccinesAged OutNo longer eligible based on patient's age to complete this topicIPV VaccinesAged OutNo longer eligible based on patient's age to complete this topicMeningococcal B VaccineAged OutNo longer eligible based on patient's age to complete this topicMeningococcal VaccineAged OutNo longer eligible based on patient's age to complete this topicRotavirus VaccinesAged OutNo longer eligible based on patient's age to complete this topic Insurance Care Teams Team MemberRelationshipSpecialtyStart DateEnd Date Uriel Sena MD [address] [place] [address] PCP - [facility]12/03/22
--- NOTE | 2025-07-10 13:08 | XR_ITS ---
The [address] [address] Patient Name: BRUNO HUYNH MRN: [id number] date: 1950 Sex: M Assigned Patient Location: ER Current Patient Location: ER Accession/Order Number: [id number] Exam Date: 07/10/2025 13:15 Report Date: 07/10/2025 13:38 At the request of: EARLINE ZHANG MD Procedure: XR lumbar spine 2-3V LUMBAR SPINE - 3 views COMPARISON: CT 05/23/2024 CLINICAL DATA: Low back pain for the past 5 days after carrying an oxygen tank. AP, lateral lumbar and lumbosacral views were obtained. There is osteopenia. No acute fracture is identified. There is no significant displacement when allowing for positioning on the lateral views. No disproportionate joint space narrowing is noted. There is minimal endplate spurring and mild lower lumbar facet disease. The SI joints are intact. No paraspinal soft tissue abnormalities are present. Incidental note is made of left nephrolithiasis. There is minor plaque at the aorta. XR/XR lumbar spine 2-3V IMPRESSION: OSTEOPENIA AND DEGENERATIVE CHANGES. NO ACUTE BONY FINDINGS. INCIDENTAL LEFT NEPHROLITHIASIS. Impression dictated by: Belinda Cochran M.D. 07/10/2025 1:38 PM Dictation Location: [place] [address] Electronically authenticated by: [id number] Y Date: 07/10/2025 13:38
--- NOTE | 2025-07-10 13:11 | ED.GENADUL1 ---
HPI HPI - General Adult General Chief complaint: Back Pain/Injury Stated complaint: BACK PAIN Time Seen by Provider: 07/10/25 13:05 Source: patient Mode of arrival: walk-in Limitations: no limitations History of Present Illness HPI narrative: 75-year-old male presented to the emergency department for midline lower back pain. He hurt his back lifting some heavy items 5 days ago. It goes into his right buttock but not down his leg. He did not fall and nothing struck him in his back. He does not have a history of back issues. Related Data Home Medications ?Medication ?Instructions ?Recorded ?Confirmed alfuzosin 10 mg tablet,extended 10 mg PO .QD 07/10/25 07/10/25 release 24 hr amlodipine 10 mg tablet 10 mg PO .QD 07/10/25 07/10/25 atorvastatin 40 mg tablet 40 mg PO QPM 07/10/25 07/10/25 carvedilol 12.5 mg tablet 12.5 mg PO Q12H 07/10/25 07/10/25 finasteride 5 mg tablet 5 mg PO .QD 07/10/25 07/10/25 ipratropium 0.5 mg-albuterol 3 mg 3 ml inhalation Q6H PRN shortness 07/10/25 07/10/25 (2.5 mg base)/3 mL nebulization of breath or wheezing soln lorazepam 1 mg tablet 1 mg PO Q6H PRN anxiety 07/10/25 07/10/25 losartan 100 mg tablet 100 mg PO .QD 07/10/25 07/10/25 metformin 500 mg tablet,extended 500 mg PO BID 07/10/25 07/10/25 release 24 hr ropinirole 0.25 mg tablet 0.25 mg PO .QD 07/10/25 07/10/25 Previous Rx's ?Medication ?Instructions ?Recorded clopidogrel 75 mg tablet (Plavix) 75 mg PO DAILY 30 days #30 tabs 05/23/24 hydrocodone 5 mg-acetaminophen 325 1 tab PO Q6H PRN pain 5 days #20 07/10/25 mg tablet tabs methocarbamol 500 mg tablet 500 mg PO Q8H PRN pain #20 tabs 07/10/25 Allergies Allergy/AdvReac Type Severity Reaction Status Date / Time tramadol Allergy Agitated Verified 07/10/25 11:43 naproxen (From Naprosyn) AdvReac Severe Nausea Verified 07/10/25 11:43 Opioid HPI Opioid Management Most Recent Opioid Data: Last Pain Scale 7 Today, 12:58 Review of Systems ROS Narrative A ten point review of systems is negative except as noted above. PFSH PFSH Social History Little interest or pleasure in doing things: not at all Feeling down, depressed, or hopeless: not at all Exam Narrative Exam Narrative: Nurses note and vital signs reviewed General:The patient appears well and in no apparent distress. Patient is upright on the cart. Skin:Warm, dry, no pallor noted.There is no rash noted. Head:Normocephalic, atraumatic Eye: Normal conjunctiva, no drainage Ears, Nose, Mouth, and Throat: oral mucosa is moist. Nares patent. Cardiovascular:Regular Rate and Rhythm Respiratory:Patient is in no distress, no accessory muscle use, lungs are clear to auscultation, no wheezing, rales or rhonchi Back: No focal area of tenderness on palpation. He has no bruise rash or abrasion GI: Nontender Musculoskeletal: Strength intact in his lower extremities Neurological:A&O, normal speech Psychiatric:Cooperative Constitutional Vital Signs, click to edit/add: Last Vital Signs Temp 98.7 F 07/10/25 11:39 Pulse 84 07/10/25 12:59 Resp 18 07/10/25 12:59 BP 122/70 07/10/25 12:59 Pulse Ox 98 07/10/25 12:59 O2 Del Method Room Air 07/10/25 12:59 Course Vital Signs Vital signs: Vital Signs Temperature 98.7 F 07/10/25 11:39 Pulse Rate 95 H 07/10/25 11:39 Respiratory Rate 18 07/10/25 11:39 Blood Pressure 137/82 07/10/25 11:39 Pulse Oximetry 98 07/10/25 11:39 Oxygen Delivery Method Room Air 07/10/25 11:39 Temperature 98.7 F 07/10/25 11:39 Pulse Rate 84 07/10/25 12:59 Respiratory Rate 18 07/10/25 12:59 Blood Pressure 122/70 07/10/25 12:59 Pulse Oximetry 98 07/10/25 12:59 Oxygen Delivery Method Room Air 07/10/25 12:59 Medical Decision Making MDM Narrative Medical decision making narrative: Showed no acute findings per radiologist. The patient is prescribed Happy and Robaxin and will follow-up with his doctor. Treatment diagnosis and follow-up were discussed with the patient. Differential Diagnosis Differential Diagnosis: Bar strain, fracture, compression fracture Imaging Data Lumbar x-rays: Radiologist's impression: ITS Impressions Lumbar Spine X-Ray 07/10/25 13:08 IMPRESSION: OSTEOPENIA AND DEGENERATIVE CHANGES. NO ACUTE BONY FINDINGS. INCIDENTAL LEFT NEPHROLITHIASIS. Impression dictated by: Belinda Cochran M.D. 07/10/2025 1:38 PM Dictation Location[facility] Electronically authenticated by: [id number] Y Date: 07/10/2025 13:38 Discharge Plan Discharge Chief Complaint: Back Pain/Injury Clinical Impression: Strain of lumbar region Patient Disposition: Home, Self-Care Time of Disposition Decision: 13:47 Condition: Good Mode of Transportation: Private Vehicle Prescriptions / Home Meds: New hydrocodone-acetaminophen 5-325 mg tablet 1 tab PO Q6H PRN (Reason: pain) 5 Days Qty: 20 0RF methocarbamol 500 mg tablet 500 mg PO Q8H PRN (Reason: pain) Qty: 20 0RF No Action clopidogrel [Plavix] 75 mg tablet 75 mg PO DAILY 30 Days Qty: 30 0RF atorvastatin 40 mg tablet 40 mg PO QPM carvedilol 12.5 mg tablet 12.5 mg PO Q12H ipratropium-albuterol 0.5 mg-3 mg(2.5 mg base)/3 mL solution for nebulization 3 ml INHALATION Q6H PRN (Reason: shortness of breath or wheezing) ropinirole 0.25 mg tablet 0.25 mg PO .QD amlodipine 10 mg tablet 10 mg PO .QD lorazepam 1 mg tablet 1 mg PO Q6H PRN (Reason: anxiety) losartan 100 mg tablet 100 mg PO .QD metformin 500 mg tablet extended release 24 hr 500 mg PO BID finasteride 5 mg tablet 5 mg PO .QD alfuzosin 10 mg tablet extended release 24 hr 10 mg PO .QD Print Language: Nepali Instructions: Low Back Strain (ED) Referrals: Uriel Sena MD [Primary Care Provider, Family Practice] - 1 week
== END 2025-07-10 13:57 | disposition home or self-care (01) ==
PROVIDERS: Emergency Provider Emergency Medicine; PCP Family Medicine
DX: S39.012A Strain of muscle, fascia and tendon of lower back, initial encounter (principal); X50.0XXA Overexertion from strenuous movement or load, initial encounter
CPT/HCPCS: 72100; 99283